=== PATIENT | female | born 1965 | race Caucasian/White ===

== ENCOUNTER 2016-10-16 07:47 | Day surgery (SDC) | payer MEDICAID, OTHER ==
[2016-10-15 08:24] VITALS: BMI 36.6
[~2016-10-16 07:47] MED LIST: LACTATED RINGERS 1,000 ML IV SCH
[2016-10-16 08:15] VITALS: RESP 16; TEMP 99.5
[2016-10-16] MEDS ORDERED: LIDOCAINE 1% 20 ML VIAL (10MG/ML) FOR IV START INTRADERMA ONE (08:19)
[2016-10-16] MEDS ORDERED: PROPOFOL 10 MG/ML 20 ML VIAL IV ONE (08:41)
[2016-10-16 09:18] VITALS: BP 127/88; PULSE 74
--- NOTE | 2016-10-16 09:21 | P.PCN ---
Date of Procedure: 10/16/16 Procedure(s) Performed: BRIEF HISTORY: Patient is a 51-year-old, pleasant, white female, scheduled for an upper endoscopy as a part of evaluation of GERD and intermittent dysphagia to solids for the last 2 years duration. Lately her symptoms have been progressively getting worse and she has episodes of dysphagia on a daily basis. She is hence scheduled for an upper endoscopy with possible dilation today. PROCEDURE PERFORMED: Esophagogastroduodenoscopy biopsy and dilation. PREOPERATIVE DIAGNOSIS: Progressive dysphagia to solids and GERD. IV sedation per anesthesia. PROCEDURE: After informed consent was obtained, the patient was brought into the endoscopy unit. IV conscious sedation was administered by Anesthesia under continuous monitoring. Initially the Olympus GIF-140 video endoscope was inserted into the mouth. Esophagus intubated without any difficulty. It was gradually advanced into the stomach and duodenum and carefully examined. The bulb and the second part of the duodenum appeared normal. The scope at this time was withdrawn to the stomach, adequately insufflated with air, and upon careful examination, mucosa of the antrum had mild gastritis and biopsies were done from this area. The body, cardia and the fundus appeared normal. The scope was then withdrawn into the esophagus. Small hiatal hernia noted. The GE junction was located at 39 cm from the incisors. There was a distal esophageal stricture identified which was patent and did not impede the passage of scope. But because of the patient's symptoms I proceeded with dilation using 15-18 mm TTS balloon for total of 2 minutes in a sequential fashion. There was some oozing identified at the end of dilation and hence no further dilation was done. The rest of theesophagus appeared normal. There were 2 superficial erosions noted in the distal esophagus consistent with LA grade A reflux esophagitis and the patient tolerated the procedure well. IMPRESSION: 1. Distal esophageal stricture status post balloon dilation using 15-18 mm TTS balloon as described above 2. Small hiatal hernia and LA grade a reflux esophagitis. 3. Mild antral gastritis. RECOMMENDATIONS: The findings of this examination were discussed with the patient as well as her family. She was advised to be on clear liquid diet today and advance to soft diet tomorrow. She will be started on Prilosec 20 mg daily and was briefly educated educated about antireflux measures. She'll be seen in the office in 3-4 months.
== END 2016-10-16 10:05 | disposition home or self-care (01) ==
LOC: ORWHC2ENDO 07:47
PROVIDERS: ATTEND Internal Medicine Gastroenterology
DX: K22.2 Esophageal obstruction (principal); R13.10 Dysphagia, unspecified; K44.9 Diaphragmatic hernia without obstruction or gangrene; I10 Essential (primary) hypertension; K29.50 Unspecified chronic gastritis without bleeding; K21.0 Gastro-esophageal reflux disease with esophagitis; F41.9 Anxiety disorder, unspecified; Z88.2 Allergy status to sulfonamides; Z88.8 Allergy status to other drugs, medicaments and biological substances; Z79.899 Other long term (current) drug therapy
CPT/HCPCS: 81025; 88305; 88342; 43239; 43249; J2704; C1726

== ENCOUNTER 2017-05-15 16:59 | Emergency (ER) | payer MEDICAID ==
[2017-05-15 17:11] VITALS: BP 222/112; PULSE 98; RESP 18; TEMP 98.4
[2017-05-15] MEDS ORDERED: PROPARACAINE 0.5% OPHTH DROPS 15 ML BTL RIGHT EYE STA (17:22)
[2017-05-15] MEDS ORDERED: DIPH,PERTUS(ACELL)TETVAC-LF 0.5 ML VIAL IM ONE (17:23)
--- NOTE | 2017-05-15 17:37 | ED ---
General Adult HPI - General Chief complaint: Eye Problems Stated complaint: burned eye with curler Time Seen by Provider: 05/15/17 17:15 Source: patient, RN notes reviewed Mode of arrival: ambulatory Limitations: no limitations - History of Present Illness Initial comments: Patient is a pleasant 51-year-old female presenting to the emergency department with burn to the right eye. Patient was curling her hair and accidentally curling iron slipped to her right eye. Patient states it was there for less than a second. Patient complains of pain of her right eye. Patient has blurry vision in her right eye. No other area of injury. Left eye unaffected. No history of injury to this eye previously. Unclear last tetanus immunization. - Related Data Home Medications Medication Instructions Recorded Confirmed ALPRAZolam [Xanax] 0.25 mg PO DAILY PRN 10/15/16 05/15/17 Losartan-Hctz 50-12.5 mg [Hyzaar 1 tab PO HS 10/15/16 05/15/17 50-12.5] Citalopram Hydrobromide [CeleXA] 20 mg PO HS 05/15/17 05/15/17 Previous Rx's Medication Instructions Recorded Neomycin/Polymyxin B/Dexametha 1 applic RIGHT EYE QID #3.5 gm 05/15/17 [Maxitrol Ophth Oint] Allergies Allergy/AdvReac Type Severity Reaction Status Date / Time cefixime [From Suprax] AdvReac Rash/Hives Verified 05/15/17 17:34 sulfamethoxazole AdvReac Rash/Hives Verified 05/15/17 17:34 [From Bactrim] trimethoprim [From Bactrim] AdvReac Rash/Hives Verified 05/15/17 17:34 Review of Systems ROS Statement: Those systems with pertinent positive or pertinent negative responses have been documented in the HPI. ROS Other: All systems not noted in ROS Statement are negative. Constitutional: Denies: fever Eyes: Reports: eye pain, vision change ENT: Denies: throat pain Respiratory: Denies: cough Cardiovascular: Denies: palpitations Endocrine: Denies: fatigue Gastrointestinal: Denies: abdominal pain Genitourinary: Denies: dysuria Musculoskeletal: Denies: back pain Skin: Denies: rash Neurological: Denies: weakness Past Medical History Past Medical History: Hypertension Additional Past Medical History / Comment(s): RECENT EPISODES OF BLACK STOOL, N/ V , ABD. PAIN AND BLOATING, ALSO FOOD GETTING STUCK ON OCCASSION History of Any Multi-Drug Resistant Organisms: None Reported Past Surgical History: Cholecystectomy Additional Past Surgical History / Comment(s): D&C Past Anesthesia/Blood Transfusion Reactions: No Reported Reaction Past Psychological History: Anxiety Smoking Status: Never smoker Past Alcohol Use History: Occasional Past Drug Use History: None Reported - Past Family History Father Family Medical History: Cancer General Exam Limitations: no limitations General appearance: alert Head exam: Present: atraumatic Eye exam: Present: PERRL, EOMI. Absent: nystagmus Pupils: Present: other (Corneal burn apparent over the majority of the right pupil, approximately 90%. In addition there is a small amount of uptake inferior and lateral to this. This is visible on gross exam and confirmed with fluoroscein. diana sign negative) ENT exam: Present: normal oropharynx Neck exam: Present: normal inspection Respiratory exam: Present: normal lung sounds bilaterally Cardiovascular Exam: Present: regular rate, normal rhythm Extremities exam: Present: normal inspection Neurological exam: Present: alert Psychiatric exam: Present: normal affect, normal mood Skin exam: Present: normal color Course Vital Signs 05/15/17 17:09 Temperature 98.4 F Pulse Rate 98 Respiratory 18 Rate Blood Pressure 222/112 O2 Sat by Pulse 98 Oximetry Medical Decision Making - Medical Decision Making Case was discussed in detail with Dr. Molina who commends [employer] and will follow-up Wednesday with patient. Patient was updated on extreme importance of following up with ophthalmology Wednesday. Disposition Clinical Impression: Corneal burn Disposition: HOME SELF-CARE Condition: Stable Instructions: Corneal Abrasion (ED) Additional Instructions: Please follow-up with Dr. Molina Wednesday. Number provided. Return for redness around the eye, change or worsening symptoms or other concerns. Prescriptions: Neomycin/Polymyxin B/Dexametha [Maxitrol Ophth Oint] 1 applic RIGHT EYE QID # 3.5 gm Referrals: Holli Krishnan MD [Primary Care Provider] - 1-2 days Jordin Molina MD [STAFF PHYSICIAN] - 1-2 days Time of Disposition: 17:45
== END 2017-05-15 18:05 | disposition home or self-care (01) ==
LOC: EC 16:59
DX: T26.11XA Burn of cornea and conjunctival sac, right eye, initial encounter (principal); T31.0 Burns involving less than 10% of body surface; I10 Essential (primary) hypertension; Z23 Encounter for immunization; Z88.1 Allergy status to other antibiotic agents; Z88.2 Allergy status to sulfonamides; Z79.899 Other long term (current) drug therapy; X15.8XXA Contact with other hot household appliances, initial encounter
CPT/HCPCS: 90471; 90715; 99283

== ENCOUNTER 2021-01-04 18:21 | Emergency (ER) | payer MEDICAID, OTHER ==
[2021-01-04 18:26] VITALS: RESP 18
--- NOTE | 2021-01-04 18:49 | ED ---
Lower Extremity Injury HPI - General Chief Complaint: Extremity Injury, Lower Stated Complaint: lt ankle injury Source: EMS Mode of arrival: EMS Limitations: no limitations - History of Present Illness Initial Comments: Jennifer is a 55yo female resents the emergency department today via ambulance for evaluation of left ankle left shoulder pain. She reports she was at the [employer] t heater she got up to walk there was a step that she did not see lighting on tripped and fell rolling her ankle and landing on her shoulder. He did not hit her head she did not lose consciousness. She has no history of injury to that ankle or surgery in the past. - Related Data Home Medications Medication Instructions Recorded Confirmed ALPRAZolam [Xanax] 0.25 mg PO DAILY PRN 10/15/16 05/15/17 Losartan-Hctz 50-12.5 mg [Hyzaar 1 tab PO HS 10/15/16 05/15/17 50-12.5] Citalopram Hydrobromide [CeleXA] 20 mg PO HS 05/15/17 05/15/17 Previous Rx's Medication Instructions Recorded Hydrocodone/Acetaminophen [[place] 2 each PO Q6HR PRN #16 tab 05/15/17 5-325] Neomycin/Polymyxin B/Dexametha 1 applic RIGHT EYE QID #3.5 gm 05/15/17 [Maxitrol Ophth Oint] Allergies Allergy/AdvReac Type Severity Reaction Status Date / Time cefixime [From Suprax] AdvReac Rash/Hives Verified 01/04/21 18:26 sulfamethoxazole AdvReac Rash/Hives Verified 01/04/21 18:26 [From Bactrim] trimethoprim [From Bactrim] AdvReac Rash/Hives Verified 01/04/21 18:26 Review of Systems ROS Statement: Those systems with pertinent positive or pertinent negative responses have been documented in the HPI. ROS Other: All systems not noted in ROS Statement are negative. Past Medical History Past Medical History: Hyperlipidemia, Hypertension Additional Past Medical History / Comment(s): RECENT EPISODES OF BLACK STOOL, N/V , ABD. PAIN AND BLOATING, ALSO FOOD GETTING STUCK ON OCCASSION History of Any Multi-Drug Resistant Organisms: None Reported Past Surgical History: Cholecystectomy Additional Past Surgical History / Comment(s): D&C Past Anesthesia/Blood Transfusion Reactions: No Reported Reaction Past Psychological History: Anxiety Smoking Status: Former smoker Past Alcohol Use History: Occasional Past Drug Use History: None Reported - Past Family History Father Family Medical History: Cancer General Exam - General Exam Comments Initial Comments: Physical Exam GENERAL: Patient is well-developed and well-nourished. Patient is nontoxic and well-hydrated and is in no distress. HENT: Normocephalic, Atraumatic. EYES: PERRL, EOMI PULMONARY: Unlabored respirations. CARDIOVASCULAR: RRR Warm and well perfused extremities ABDOMEN: Non-distended SKIN: No rashes or bruising : Deferred NEUROLOGIC: Alert and oriented Normal speech MUSCULOSKELETAL: Full range of motion of left shoulder Swelling the lateral left ankle over the lateral malleolus, no tenderness to palpation in the foot or proximal fibula PSYCHIATRIC: No SI/HI Limitations: no limitations Course Vital Signs 01/04/21 01/04/21 18:22 20:22 Temperature 98.5 F 98.9 F Pulse Rate 86 83 Respiratory 18 18 Rate Blood Pressure 153/99 129/91 O2 Sat by Pulse 97 100 Oximetry Medical Decision Making - Medical Decision Making Patient was seen and evaluated Sirs obtained from patient and EMS X-rays were obtained and revealed no acute bony injury Diagnosis of sprain was discussed with the patient, she was placed in a stirrup splint and provided with crutches Patient was advised to follow up outpatient with orthopedics Supportive care including rest, ice, compression and elevation were discussed patient was discharged home in stable condition Disposition Clinical Impression: Fall, Right ankle sprain Disposition: HOME SELF-CARE Condition: Stable Instructions (If sedation given, give patient instructions): Ankle Sprain (ED) Is patient prescribed a controlled substance at d/c from ED?: No Referrals: Bridgett Shipley MD [Primary Care Provider] - 1-2 days
--- NOTE | 2021-01-04 19:06 | XR ---
EXAMINATION TYPE: XR shoulder complete LT DATE OF EXAM: 01/04/2021 COMPARISON: NONE HISTORY: Pain. Fall. TECHNIQUE: 3 views FINDINGS: I see no fracture nor dislocation. Joint spaces are normal. There are no pathologic calcifi cations. IMPRESSION: Negative left shoulder exam.
--- NOTE | 2021-01-04 19:07 | XR ---
EXAMINATION TYPE: XR ankle complete LT DATE OF EXAM: 01/04/2021 COMPARISON: NONE HISTORY: Pain TECHNIQUE: 3 views FINDINGS: Ankle mortise is anatomic. I see no fracture nor dislocation. There is plantar calcaneal sp urring. Joint spaces are normal. IMPRESSION: No acute abnormality of the left ankle.
[2021-01-04] MEDS ORDERED: MORPHINE SULFATE 4 MG/ML SYRINGE IM STA (19:12)
[2021-01-04 20:24] VITALS: BP 129/91; PULSE 83; TEMP 98.9
== END 2021-01-04 20:25 | disposition home or self-care (01) ==
LOC: EC 18:21
DX: S93.401A Sprain of unspecified ligament of right ankle, initial encounter (principal); S99.912A Unspecified injury of left ankle, initial encounter; M25.512 Pain in left shoulder; E78.5 Hyperlipidemia, unspecified; I10 Essential (primary) hypertension; F41.9 Anxiety disorder, unspecified; Z87.891 Personal history of nicotine dependence; Z79.899 Other long term (current) drug therapy; W01.0XXA Fall on same level from slipping, tripping and stumbling without subsequent striking against object, initial encounter; Y92.26 Movie house or cinema as the place of occurrence of the external cause
CPT/HCPCS: 73030; 73610; 99284; 96372; 29505; L4350; J2270

== ENCOUNTER → 2021-02-19 | Outpatient (CLI) | payer OTHER ==
[2021-02-19 16:53] LABS: Basophils # (A) 0.06 X 10*3/uL (0.00-0.10); Basophils % (A) 0.8 %; Eosinophils # (A) 0.17 X 10*3/uL (0.04-0.35); Eosinophils % (A) 2.4 %; HCT 45.1 % (37.2-46.3); HGB 14.4 g/dL (12.0-15.0); Lymphocytes # (A) 1.84 X 10*3/uL (0.90-5.00); Lymphocytes % (A) 25.5 %; MCH 29.1 pg (27.0-32.0); MCHC 31.9 g/dL (32.0-37.0); MCV 91.1 fL (80.0-97.0); Monocytes # (A) 0.79 X 10*3/uL (0.20-1.00); Neutrophils # (A) 4.33 X 10*3/uL (1.80-7.70); Platelet Count 368 X 10*3/uL (140-440); RBC 4.95 X 10*6/uL (4.10-5.20); RDW 14.5 % (11.5-14.5); WBC 7.21 X 10*3/uL (4.50-10.00)
[2021-02-19 18:54] LABS: African American GFR (CKD) 96.9 (60.0-200.0); Albumin 4.4 g/dL (3.80-4.90); Albumin/Globulin Ratio 1.69 (1.60-3.17); Anion Gap 7.8 mmol/L (4.00-12.00); BUN/Creat Ratio 17.5 Ratio (12.00-20.00); Calcium 9.9 mg/dL (8.7-10.3); Carbon Dioxide 28.2 mmol/L (21.6-31.8); Chol/HDL Ratio 5.64; Globulin 2.6 g/dL (1.6-3.3); LDL Cholesterol,Calculated 162.6 mg/dL (0.0-131.0); Non-African American GFR(CKD) 83.6 (60.0-200.0); Potassium 4.1 mmol/L (3.5-5.5); Total Bilirubin 0.7 mg/dL (0.3-1.2); VLDL Calculation 41.4 mg/dL (5.00-40.00)
[2021-02-19 20:19] LABS: Hemoglobin A1C 5.4 % (4.0-6.0)
== END | disposition home or self-care (01) ==
LOC: LABWHC1 09:07
PROVIDERS: ATTEND Psychiatry & Neurology Psychiatry
DX: Z01.419 Encounter for gynecological examination (general) (routine) without abnormal findings (principal); R53.83 Other fatigue
CPT/HCPCS: 36415; 80053; 80061; 82306; 82607; 83036; 84439; 84443; 85025

== ENCOUNTER → 2021-04-08 | Outpatient (CLI) | payer OTHER ==
--- NOTE | 2021-04-15 09:30 | MM ---
Reason for exam: screening (asymptomatic). Last mammogram was performed 1 year and 11 months ago. History: Patient is postmenopausal. Family history of premenopausal breast cancer in mother. Benign excisional biopsy of the right breast. Took hormonal contraceptives for 5 years. Physical Findings: A clinical breast exam by your physician is recommended on an annual basis and results should be correlated with mammographic findings. MG 3D Screening Mammo W/Cad Bilateral CC and MLO view(s) were taken. Prior study comparison: May 22, 2019, mammogram, performed at [place]. May 08, 2019, mammogram, performed at [place]. November 21, 2015, bilateral MG 3d screening mammo w/cad. May 04, 2014, bilateral MG screening mammo w CAD. The breast tissue is heterogeneously dense. This may lower the sensitivity of mammography. Finding #1: There is a 5 mm equal density (isodense), obscured mass in the central position of the left breast. Finding #2: There are typically benign calcifications in both breasts. Previous mammotome biopsy in the right breast. ASSESSMENT: Incomplete: need additional imaging evaluation, BI-RAD 0 RECOMMENDATION: Special view mammogram of the left breast. If lesion persists on supplemental views, image directed ultrasound is recommended. [facility] will attempt to contact patient to return for supplemental views and ultrasound if indicated.
== END | disposition home or self-care (01) ==
LOC: RADMAMWWP 11:21
PROVIDERS: ATTEND Family Medicine
DX: Z12.39 Encounter for other screening for malignant neoplasm of breast (principal); Z80.3 Family history of malignant neoplasm of breast
CPT/HCPCS: 77063; 77067

== ENCOUNTER → 2021-04-16 | Outpatient (CLI) | payer OTHER ==
--- NOTE | 2021-04-16 10:09 | MM ---
Reason for exam: additional evaluation requested from abnormal screening. Last mammogram was performed less than 1 month ago. History: Patient is postmenopausal. Family history of premenopausal breast cancer in mother at age 50. Benign excisional biopsy of the right breast, 2019. Took hormonal contraceptives for 5 years. Physical Findings: Nurse did not find any significant physical abnormalities on exam. MG 3D Work Up W/Cad LT Spot compression CC and CCRL view(s) were taken of the left breast. Prior study comparison: April 08, 2021, bilateral MG 3d screening mammo w/cad. May 22, 2019, mammogram, performed at [place]. There is no discrete abnormality including area of concern. These results were verbally communicated with the patient and result sheet given to the patient on 04/16/21. ASSESSMENT: Probably benign, BI-RAD 3 RECOMMENDATION: Follow-up diagnostic mammogram of the left breast in 6 months.
== END | disposition home or self-care (01) ==
LOC: RADMAMWWP 08:20
PROVIDERS: ATTEND Family Medicine
DX: R92.8 Other abnormal and inconclusive findings on diagnostic imaging of breast (principal); Z80.3 Family history of malignant neoplasm of breast
CPT/HCPCS: 77061; 77065

== ENCOUNTER 2021-07-02 08:05 | Day surgery (SDC) | payer OTHER ==
[2021-06-27 15:31] VITALS: BMI 37.4
[~2021-07-02 08:05] MED LIST changes: +LIDOCAINE 1% (10MG/ML) FOR IV START INTRADERMA PRN
[2021-07-02] MEDS ORDERED: LACTATED RINGERS 1,000 ML IV ONE (08:39)
[2021-07-02 08:43] VITALS: RESP 18; TEMP 97.8
[2021-07-02] MEDS ORDERED: PROPOFOL 10 MG/ML 20 ML VIAL IV ONE (09:52)
[2021-07-02] MEDS ORDERED: LIDOCAINE 1% INJ 10MG/ML (20 ML MDV) ONE (09:52)
--- NOTE | 2021-07-02 10:12 | P.PCN ---
Date of Procedure: 07/02/21 Procedure(s) Performed: BRIEF HISTORY: Patient is a 56-year-old pleasant white female scheduled for an elective colonoscopy as a part of screening for colorectal neoplasia. PROCEDURE PERFORMED: Colonoscopy. PREOPERATIVE DIAGNOSIS: Screening for colon cancer. IV sedation per Anesthesia. PROCEDURE: After informed consent was obtained, the patient, was brought into the endoscopy unit. IV sedation was administered by Anesthesia under continuous monitoring. Digital rectal examination was normal. Initially the Olympus CF-160 flexible video colonoscope was then inserted in the rectum, gradually advanced into the cecum without any difficulty. Careful examination was performed as the scope was gradually being withdrawn. Ileocecal valve and the appendiceal orifice were visualized and appeared normal. Prep was excellent. Mucosa of the cecum, ascending colon, transverse colon, descending colon, sigmoid colon, and rectum appeared normal. Retroflexion was performed in the rectum and no lesions were seen. The patient tolerated the procedure well. IMPRESSION: Normal-appearing colon from rectum to cecum with no evidence of colorectal neoplasia. RECOMMENDATIONS: Findings of this examination were discussed with the patient as well as a family. She was advised to have a repeat screening colonoscopy in 10 years..
[2021-07-02 10:37] VITALS: BP 134/85; PULSE 90
== END 2021-07-02 10:52 | disposition home or self-care (01) ==
LOC: ORWHC2ENDO 08:05
PROVIDERS: ATTEND Internal Medicine Gastroenterology
DX: Z12.11 Encounter for screening for malignant neoplasm of colon (principal)
CPT/HCPCS: 45378; J2001; J2704

== ENCOUNTER → 2021-09-15 | Outpatient (CLI) | payer OTHER ==
--- NOTE | 2021-09-15 16:25 | XR ---
EXAMINATION TYPE: XR lumbar spine 2 or 3V, XR Hip Complete 2 views RT DATE OF EXAM: 09/15/2021 Comparison: None Clinical History: 56-year-old female pain. S39.012A, S76.011D. Lifting injury 2 weeks ago. Findings: LUMBAR SPINE: Advanced hypertrophic facet arthropathy mid to lower lumbar spine. Additional degenerative subarticul ar sclerosis right SI joint. Cholecystectomy clips. Grade 1 anterolisthesis of L4-L5. Trace grade 1 r etrolisthesis L1-L2, L2-L3, L3-L4. Mild multilevel degenerative disc disease. Vertebral body heights are preserved. RIGHT HIP: Mild marginal spurring at the right hip with relative preservation of hip joint space. No fracture or dislocation. IMPRESSION (lumbar spine and right hip): 1. Advanced hypertrophic facet arthropathy. Degenerative grade 1 spondylolisthesis from L1 through L5 levels. Mild multilevel degenerative disc disease. No vertebral compression collapse. 2. At least moderate right SI joint OA, asymmetric to the contralateral side. 3. Minimal early degenerative change of the right hip. No acute osseous abnormality seen.
== END | disposition home or self-care (01) ==
LOC: RADXRMAIN 15:31
PROVIDERS: ATTEND Emergency Medicine
DX: S39.012A Strain of muscle, fascia and tendon of lower back, initial encounter (principal); S76.011D Strain of muscle, fascia and tendon of right hip, subsequent encounter; M47.896 Other spondylosis, lumbar region; M51.36 Other intervertebral disc degeneration, lumbar region; X58.XXXA Exposure to other specified factors, initial encounter; X50.9XXD Other and unspecified overexertion or strenuous movements or postures, subsequent encounter
CPT/HCPCS: 72100; 73502

== ENCOUNTER → 2022-02-13 | Outpatient (CLI) | payer OTHER | END | disposition home or self-care (01) | LOC: RADMAMWWP 14:23 | PROVIDERS: ATTEND Family Medicine | DX: R92.8 Other abnormal and inconclusive findings on diagnostic imaging of breast (principal) | CPT/HCPCS: 77066 ==

== ENCOUNTER 2023-04-12 08:16 | Emergency (ER) | payer BC ==
[2023-04-12 08:26] VITALS: RESP 18
[2023-04-12] MEDS ORDERED: SODIUM CHLORIDE 0.9% 1,000 ML IV STA (08:33)
[2023-04-12] MEDS ORDERED: ONDANSETRON 4 MG/2 ML VIAL IVP STA (08:33)
--- NOTE | 2023-04-12 08:38 | ED ---
Recheck HPI - General Chief Complaint: Recheck/Abnormal Lab/Rx Stated Complaint: HTN Time Seen by Provider: 04/12/23 08:27 Source: patient, RN notes reviewed Mode of arrival: ambulatory Limitations: no limitations - History of Present Illness Initial Comments: This is a 57-year-old female who presents to the emergency department for nausea, cold sweats, and shaking. Patient was at work, when she suddenly started to experience these symptoms. She had a coworker take her blood pressure, and it was 160/101. She had some orange juice, and when it was rechecked it was in the 150s systolically. Reports a family history of strokes, and was concerned about the elevation in her blood pressure. She did take her blood pressure medication this morning. States that she does still feel somewhat nauseous and shaky. Denies any fevers, chills, sore throat, cough, dyspnea, chest pain, palpitations, abdominal pain, vomiting, diarrhea, back pain, or headaches. - Related Data Home Medications Medication Instructions Recorded Confirmed ALPRAZolam [Xanax] 0.25 mg PO DAILY PRN 10/15/16 04/12/23 Losartan-Hctz 50-12.5 mg [Hyzaar 1 tab PO HS 10/15/16 04/12/23 50-12.5] Atorvastatin [Lipitor] 20 mg PO HS 06/27/21 04/12/23 Cyclobenzaprine [Flexeril] 5 mg PO DAILY PRN 04/12/23 04/12/23 Magnesium 250 mg PO HS 04/12/23 04/12/23 Omeprazole [PriLOSEC] 20 mg PO DAILY PRN 04/12/23 04/12/23 buPROPion HCL [Wellbutrin XL] 150 mg PO HS 04/12/23 04/12/23 Allergies Allergy/AdvReac Type Severity Reaction Status Date / Time cefixime [From Suprax] AdvReac Rash/Hives Verified 04/12/23 10:56 sulfamethoxazole AdvReac Rash/Hives Verified 04/12/23 10:56 [From Bactrim] trimethoprim [From Bactrim] AdvReac Rash/Hives Verified 04/12/23 10:56 Review of Systems ROS Statement: Those systems with pertinent positive or pertinent negative responses have been documented in the HPI. ROS Other: All systems not noted in ROS Statement are negative. Past Medical History Past Medical History: Hyperlipidemia, Hypertension Additional Past Medical History / Comment(s): BLACK STOOL-last episode 2 weeks ago History of Any Multi-Drug Resistant Organisms: None Reported Past Surgical History: Cholecystectomy Additional Past Surgical History / Comment(s): D&C Past Anesthesia/Blood Transfusion Reactions: No Reported Reaction Past Psychological History: Anxiety Smoking Status: Former smoker Past Alcohol Use History: Occasional Past Drug Use History: None Reported - Past Family History Father Family Medical History: Cancer General Exam Limitations: no limitations General appearance: alert, in no apparent distress Head exam: Present: atraumatic, normocephalic, normal inspection Eye exam: Present: normal appearance, PERRL, EOMI. Absent: scleral icterus, conjunctival injection, periorbital swelling Respiratory exam: Present: normal lung sounds bilaterally. Absent: respiratory distress, wheezes, rales, rhonchi, stridor Cardiovascular Exam: Present: regular rate, normal rhythm, normal heart sounds. Absent: systolic murmur, diastolic murmur, rubs, gallop, clicks Neurological exam: Present: alert, oriented X3, CN II-XII intact Expanded Speech: Present: fluid speech Cerebellar function: Finger to Nose: Normal, Romberg: Normal Motor strength exam: RUE: 5, LUE: 5, RLE: 5, LLE: 5 Psychiatric exam: Present: normal affect, normal mood Skin exam: Present: warm, dry, intact, normal color. Absent: rash Course Vital Signs 04/12/23 04/12/23 04/12/23 08:20 09:03 09:30 Temperature 96.7 F L Pulse Rate 80 75 61 Respiratory 18 18 18 Rate Blood Pressure 142/100 140/92 140/92 O2 Sat by Pulse 97 97 96 Oximetry 04/12/23 04/12/23 10:00 10:30 Temperature Pulse Rate 58 L 61 Respiratory 18 18 Rate Blood Pressure 126/90 127/86 O2 Sat by Pulse 99 99 Oximetry Medical Decision Making - Medical Decision Making This is a 57-year-old female who presents to the emergency department for nausea, cold sweats, and shaking. Was pt. sent in by a medical professional or institution? @ -No Did you speak to anyone other than the patient for history? @ -No Did you review nursing and triage notes? @ -Yes, and I agree, it is accurate with regards to the patient's symptoms. Were old charts reviewed? @ -No Differential Diagnosis? @ -Differential Nausea and Vomiting: Gastroenteritis, cholecystitis, appendicitis, pancreatitis, migraine, benign positional vertigo, food borne illness, pyelonephritis, irritable bowel syndrome, influenza, Covid, GERD, incarcerated hernia, intestinal obstruction, this is not meant to be an all-inclusive list. EKG interpreted by me (3pts min.)? @ -EKG interpreted by me demonstrating the following: Sinus rhythm. Ventricular rate 72 beats per minute, HI interval 185 ms, QRS duration 89 ms, QTC 398 ms. X-rays interpreted by me (1pt min.)? @ -Chest x-ray obtained, my interpretation identifies no localized consolidations or infiltrates. CT interpreted by me (1pt min.)? @ -Not obtained U/S interpreted by me (1pt. min.)? @ -Not obtained What testing was considered but not performed? (CT, X-rays, U/S, labs)? Why? @ -None What meds were considered but not given? Why? @ -None Did you discuss the management of the patient with other professionals? @ -No Did you reconcile home meds? @ -No Was smoking cessation discussed for >3mins.? @ -No Was critical care preformed (if so, how long)? @ -No Were there social determinants of health that impacted care today? How? (Homelessness, low income, unemployed, alcoholism, drug addiction, transportation, low edu. Level, literacy, decrease access to med. care, group home, rehab)? @ -No Was there de-escalation of care discussed even if they declined? (Discuss DNR or withdrawal of care, Hospice)? @ -No What co-morbidities impacted this encounter? (DM, HTN, Smoking, COPD, CAD, Cancer, CVA, Hep., AIDS, mental health diagnosis, sleep apnea, morbid obesity)? @ -HTN, HLD Was patient admitted / discharged? @ -Discharged. Lab work obtained and found to be nonactionable. We did also obtain a second troponin, which was also negative. She was given a liter bolus of IV fluids and Zofran. She did start to feel significantly improved while in the emergency department. Blood pressure also improved significantly into the 120s systolically. She was discharged home in stable condition with instruction to follow-up with her PCP. Undiagnosed new problem with uncertain prognosis? @ -None Drug Therapy requiring intensive monitoring for toxicity (Heparin, Nitro, Insulin, Cardizem)? @ -None Were any procedures done? @ -None Diagnosis/symptom? @ -Nausea, tremors, elevated BP Acute, or Chronic, or Acute on Chronic? @ -Acute Uncomplicated (without systemic symptoms) or Complicated (systemic symptoms)? @ -Uncomplicated Side effects of treatment? @ -None Exacerbation, Progression, or Severe Exacerbation] @ -Not applicable Poses a threat to life or bodily function? @ -No Return precautions reviewed in depth, the patient is instructed to return to the emergency department with any new, worsening, or concerning symptoms. Patient ve rbalized understanding. This case was discussed in detail with the attending ED physician, Dr. Kang. Presentation, findings, and treatment plan discussed in detail as well. - Lab Data Result diagrams: 04/12/23 08:45 04/12/23 08:45 Lab Results 04/12/23 04/12/23 04/12/23 Range/Units 08:45 08:45 08:45 WBC 6.9 (3.8-10.6) k/uL RBC 5.02 (3.80-5.40) m/uL Hgb 14.5 (11.4-16.0) gm/dL Hct 43.4 (34.0-46.0) % MCV 86.5 (80.0-100.0) fL MCH 28.9 (25.0-35.0) pg MCHC 33.4 (31.0-37.0) g/dL RDW 13.9 (11.5-15.5) % Plt Count 275 (150-450) k/uL MPV 7.4 Neutrophils % 60 % Lymphocytes % 24 % Monocytes % 10 % Eosinophils % 3 % Basophils % 1 % Neutrophils # 4.2 (1.3-7.7) k/uL Lymphocytes # 1.7 (1.0-4.8) k/uL Monocytes # 0.7 (0-1.0) k/uL Eosinophils # 0.2 (0-0.7) k/uL Basophils # 0.0 (0-0.2) k/uL PT 10.0 (9.0-12.0) sec INR 0.9 (<1.2) APTT 23.7 (22.0-30.0) sec Sodium 138 (137-145) mmol/L Potassium 4.3 (3.5-5.1) mmol/L Chloride 101 (98-107) mmol/L Carbon Dioxide 31 H (22-30) mmol/L Anion Gap 6 mmol/L BUN 20 H (7-17) mg/dL Creatinine 0.71 (0.52-1.04) mg/dL Est GFR (CKD-EPI)AfAm >90 (>60 ml/min/1.73 sqM) Est GFR (CKD-EPI)NonAf >90 (>60 ml/min/1.73 sqM) Glucose 93 (74-99) mg/dL Calcium 10.7 H (8.4-10.2) mg/dL Magnesium 2.2 (1.6-2.3) mg/dL Total Bilirubin 0.6 (0.2-1.3) mg/dL AST 31 (14-36) U/L ALT 30 (4-34) U/L Alkaline Phosphatase 74 (38-126) U/L Troponin I (0.000-0.034) ng/mL Total Protein 7.5 (6.3-8.2) g/dL Albumin 4.3 (3.5-5.0) g/dL TSH 1.820 (0.465-4.680) mIU/L 04/12/23 04/12/23 Range/Units 08:45 13:00 WBC (3.8-10.6) k/uL RBC (3.80-5.40) m/uL Hgb (11.4-16.0) gm/dL Hct (34.0-46.0) % MCV (80.0-100.0) fL MCH (25.0-35.0) pg MCHC (31.0-37.0) g/dL RDW (11.5-15.5) % Plt Count (150-450) k/uL MPV Neutrophils % % Lymphocytes % % Monocytes % % Eosinophils % % Basophils % % Neutrophils # (1.3-7.7) k/uL Lymphocytes # (1.0-4.8) k/uL Monocytes # (0-1.0) k/uL Eosinophils # (0-0.7) k/uL Basophils # (0-0.2) k/uL PT (9.0-12.0) sec INR (<1.2) APTT (22.0-30.0) sec Sodium (137-145) mmol/L Potassium (3.5-5.1) mmol/L Chloride (98-107) mmol/L Carbon Dioxide (22-30) mmol/L Anion Gap mmol/L BUN (7-17) mg/dL Creatinine (0.52-1.04) mg/dL Est GFR (CKD-EPI)AfAm (>60 ml/min/1.73 sqM) Est GFR (CKD-EPI)NonAf (>60 ml/min/1.73 sqM) Glucose (74-99) mg/dL Calcium (8.4-10.2) mg/dL Magnesium (1.6-2.3) mg/dL Total Bilirubin (0.2-1.3) mg/dL AST (14-36) U/L ALT (4-34) U/L Alkaline Phosphatase (38-126) U/L Troponin I <0.012 <0.012 (0.000-0.034) ng/mL Total Protein (6.3-8.2) g/dL Albumin (3.5-5.0) g/dL TSH (0.465-4.680) mIU/L - Radiology Data Radiology results: report reviewed, image reviewed Disposition Clinical Impression: Nausea, Hypertension Disposition: HOME SELF-CARE Instructions (If sedation given, give patient instructions): Hypertension (ED) Additional Instructions: Return to the emergency department with any new, worsening, or concerning symptoms. 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 Is patient prescribed a controlled substance at d/c from ED?: No Referrals: Bridgett Shipley MD [STAFF PHYSICIAN] - 1-2 days
--- NOTE | 2023-04-12 09:04 | XR ---
EXAMINATION TYPE: XR chest 2V DATE OF EXAM: 04/12/2023 COMPARISON: None INDICATION: Chest pain and abnormal labs disease TECHNIQUE: Frontal and lateral views of the chest are obtained. FINDINGS: The heart size is normal. The pulmonary vasculature is normal. The lungs are clear. IMPRESSION: 1. No acute pulmonary process.
[2023-04-12 09:09] LABS: Basophils % (A) 1 %; Eosinophils # (A) 0.2 k/uL (0-0.7); Eosinophils % (A) 3 %; HCT 43.4 % (34.0-46.0); HGB 14.5 gm/dL (11.4-16.0); Lymphocytes # (A) 1.7 k/uL (1.0-4.8); Lymphocytes % (A) 24 %; MCH 28.9 pg (25.0-35.0); MCHC 33.4 g/dL (31.0-37.0); MCV 86.5 fL (80.0-100.0); Mean Platelet Volume 7.4; Monocytes # (A) 0.7 k/uL (0-1.0); Monocytes % (A) 10 %; Neutrophils # (A) 4.2 k/uL (1.3-7.7); Neutrophils % (A) 60 %; Platelet Count 275 k/uL (150-450); RBC 5.02 m/uL (3.80-5.40); RDW 13.9 % (11.5-15.5); WBC 6.9 k/uL (3.8-10.6)
[2023-04-12 09:22] LABS: INR 0.9 (<1.2); Partial Thromboplastin Time 23.7 sec (22.0-30.0)
[2023-04-12 09:23] LABS: ALT 30 U/L (4-34); AST 31 U/L (14-36); African American GFR (CKD) >90 (>60 ml/min/1.73 sqM); Albumin 4.3 g/dL (3.5-5.0); Alkaline Phosphatase 74 U/L (38-126); Blood Urea Nitrogen 20 mg/dL (7-17); Calcium 10.7 mg/dL (8.4-10.2); Carbon Dioxide 31 mmol/L (22-30); Glucose 93 mg/dL (74-99); Magnesium 2.2 mg/dL (1.6-2.3); Non-African American GFR(CKD) >90 (>60 ml/min/1.73 sqM); Total Bilirubin 0.6 mg/dL (0.2-1.3); Total Protein 7.5 g/dL (6.3-8.2)
[2023-04-12 09:54] LABS: Anion Gap 6 mmol/L; Chloride 101 mmol/L (98-107); Potassium 4.3 mmol/L (3.5-5.1); Sodium 138 mmol/L (137-145)
[2023-04-12] MEDS ORDERED: ONDANSETRON 4 MG ODT STARTER PACK 2 TAB BTL PO STA (14:11)
[2023-04-12 14:43] VITALS: BP 119/74; PULSE 69; TEMP 98.4
== END 2023-04-12 14:47 | disposition home or self-care (01) ==
LOC: EC 08:16
DX: I10 Essential (primary) hypertension (principal); R11.0 Nausea; E78.5 Hyperlipidemia, unspecified; F41.9 Anxiety disorder, unspecified; Z87.891 Personal history of nicotine dependence; Z88.2 Allergy status to sulfonamides; Z88.1 Allergy status to other antibiotic agents; Z79.899 Other long term (current) drug therapy
CPT/HCPCS: 36415; 93005; 80053; 84443; 83735; 84484; 85025; 85610; 85730; 71046; 99284; 96374; 96361; J2405

== ENCOUNTER → 2023-09-15 | Outpatient (CLI) | payer BC ==
--- NOTE | 2023-09-16 09:02 | MM ---
Reason for Exam: Screening (asymptomatic). Last mammogram was performed 2 year(s) and 5 month(s) ago. Patient History: Menarche at age 14. First Full-Term at age 28. Postmenopausal. Patient used Hormonal Contraceptives for 5 years. 2019, Benign Excisional Biopsy on the right side. Mother had breast cancer, age 50. Risk Values: Ara 5 year model risk: 3.0%. NCI Lifetime model risk: 17.3%. Prior Study Comparison: 04/08/2021 Bilateral Screening Mammogram, [facility]. 04/16/2021 Left Diagnostic Mammogram, [facility]. 02/13/2022 Bilateral MG diagnostic mammo w CAD [facility], [facility]. Tissue Density: There are scattered fibroglandular densities. Findings: Analyzed By CAD. Right breast biopsy clip. There is no suspicious group of microcalcifications or new suspicious mass. Overall Assessment: Negative, BI-RAD 1 Management: Screening Mammogram of both breasts in [address] [facility] will attempt to contact patient to return for supplemental views and ultrasound if indicated. Patient should continue monthly self-breast exams. A clinical breast exam by your physician is recommended on an annual basis. This exam should not preclude additional follow-up of suspicious palpable abnormalities. Note on Ara scores and lifetime risk: 1. A Ara score greater than 3% is considered moderate risk. If this is the case, consider specialist referral to assess eligibility for a risk reducing agent. 2. If overall lifetime risk for the development of breast cancer is 20% or higher, the patient may qualify for future screening with alternating mammogram and breast MRI. Electronically signed and approved by: Pavel Mooney DO
== END | disposition home or self-care (01) ==
LOC: RADMAMWWP 15:36
PROVIDERS: ATTEND Family Medicine
DX: Z12.31 Encounter for screening mammogram for malignant neoplasm of breast (principal); Z80.3 Family history of malignant neoplasm of breast; Z78.0 Asymptomatic menopausal state
CPT/HCPCS: 77063; 77067

== ENCOUNTER 2024-12-05 02:25 | Emergency (ER) | payer BC ==
[2024-12-05 02:29] VITALS: TEMP 97.4
[2024-12-05] MEDS: ONDANSETRON ODT 8 MG TAB.RAPDIS PO STA (02:53)
[2024-12-05] MEDS: KETOROLAC 15 MG/ML 1 ML VIAL IVP STA ×2 (02:54→05:39)
[2024-12-05] MEDS: SODIUM CHLORIDE 0.9% 1,000 ML IV SCH (02:55)
[2024-12-05] MEDS: HYDROmorphone 1 MG/ML 1 ML SYRINGE IVP STA (02:55)
[2024-12-05 02:58] LABS: Basophils # (A) 0.08 10*3/uL (0.00-0.10); Eosinophils # (A) 0.33 10*3/uL (0.04-0.35); Eosinophils % (A) 4.3 %; HGB 14.9 g/dL (12.0-15.0); Lymphocytes # (A) 2.37 10*3/uL (0.90-5.00); Lymphocytes % (A) 30.6 %; MCH 28.8 pg (27.0-32.0); MCHC 32.4 g/dL (32.0-37.0); MCV 88.8 fL (80.0-97.0); Mean Platelet Volume 9.9 fL (9.5-12.2); Monocytes # (A) 0.88 10*3/uL (0.20-1.00); Monocytes % (A) 11.4 %; Neutrophils # (A) 4.07 10*3/uL (1.80-7.70); Neutrophils % (A) 52.4 %; Platelet Count 298 10*3/uL (140-440); RBC 5.18 10*6/uL (4.10-5.20); RDW 13.5 % (11.5-14.5); WBC 7.75 10*3/uL (4.50-10.00)
--- NOTE | 2024-12-05 03:07 | ED ---
Abdominal Pain HPI - General Chief Complaint: Back Pain/Injury Stated Complaint: Left flank pain Time Seen by Provider: 12/05/24 02:37 Source: patient, RN notes reviewed, old records reviewed Mode of arrival: ambulatory - History of Present Illness Initial Comments: This is a 59-year-old female to the ER for evaluation of severe abdominal pain flank pain back pain left flank pain left abdominal pain severe with nausea vomiting 3 to 4 days now spreading around to her lower back into her groin, left flank with no trauma no fevers no dysuria no diarrhea no difficulty with bowel movements no other complaints no history of surgery MD Complaint: abdominal pain -: days(s) (3) Location: LLQ, L flank Migration to: LLQ, L flank Severity: severe Severity scale (1-10): 8 Quality: stabbing Consistency: constant Improves With: nothing Worsens With: nothing Associated Symptoms: nausea, vomiting Treatments Prior to Arrival: other (0) - Related Data Home Medications Medication Instructions Recorded Confirmed ALPRAZolam [Xanax] 0.25 mg PO DAILY PRN 10/15/16 04/16/23 Losartan-Hctz 50-12.5 mg [Hyzaar 1 tab PO HS 10/15/16 04/16/23 50-12.5] Atorvastatin [Lipitor] 20 mg PO HS 06/27/21 04/16/23 Cyclobenzaprine [Flexeril] 5 mg PO HS PRN 04/12/23 04/16/23 Omeprazole [PriLOSEC] 20 mg PO DAILY 04/12/23 04/16/23 buPROPion HCL [Wellbutrin XL] 150 mg PO HS 04/12/23 04/16/23 Previous Rx's Medication Instructions Recorded Aspirin 81 mg PO DAILY 30 Days #30 tab 04/17/23 Metoprolol Succinate (ER) [Toprol 25 mg PO DAILY 30 Days #30 tab 04/17/23 XL] Ketorolac [Toradol] 10 mg PO Q6HR #20 tab 12/05/24 Allergies Allergy/AdvReac Type Severity Reaction Status Date / Time cefixime [From Suprax] AdvReac Rash/Hives Verified 12/05/24 02:29 sulfamethoxazole AdvReac Rash/Hives Verified 12/05/24 02:29 [From Bactrim] on face trimethoprim [From Bactrim] AdvReac Rash/Hives Verified 12/05/24 02:29 on face Review of Systems ROS Statement: Those systems with pertinent positive or pertinent negative responses have been documented in the HPI. ROS Other: All systems not noted in ROS Statement are negative. Past Medical History Past Medical History: Hyperlipidemia, Hypertension Additional Past Medical History / Comment(s): BLACK STOOL-last episode 2 weeks ago History of Any Multi-Drug Resistant Organisms: None Reported Past Surgical History: Cholecystectomy Additional Past Surgical History / Comment(s): D&C Past Anesthesia/Blood Transfusion Reactions: No Reported Reaction Additional Past Anesthesia/Blood Transfusion Reaction / Comment(s): has not recieved blood Past Psychological History: Anxiety Smoking Status: Former smoker Past Alcohol Use History: Occasional Past Drug Use History: None Reported - Past Family History Father Family Medical History: Cancer General Exam General appearance: alert, in no apparent distress Head exam: Present: atraumatic, normocephalic, normal inspection Eye exam: Present: normal appearance, PERRL, EOMI. Absent: scleral icterus, conjunctival injection, periorbital swelling ENT exam: Present: normal exam, mucous membranes moist Neck exam: Present: normal inspection. Absent: tenderness, meningismus, lymphadenopathy Respiratory exam: Present: normal lung sounds bilaterally. Absent: respiratory distress, wheezes, rales, rhonchi, stridor Cardiovascular Exam: Present: regular rate, normal rhythm, normal heart sounds. Absent: systolic murmur, diastolic murmur, rubs, gallop, clicks GI/Abdominal exam: Present: soft, normal bowel sounds. Absent: distended, tenderness, guarding, rebound, rigid Extremities exam: Present: normal inspection, full ROM, normal capillary refill. Absent: tenderness, pedal edema, joint swelling, calf tenderness Back exam: Present: normal inspection Neurological exam: Present: alert, oriented X3, CN II-XII intact Psychiatric exam: Present: normal affect, normal mood Skin exam: Present: warm, dry, intact, normal color. Absent: rash Course Vital Signs 12/05/24 12/05/24 12/05/24 02:27 05:01 05:45 Temperature 97.4 F L Pulse Rate 69 68 61 Respiratory 18 16 18 Rate Blood Pressure 147/100 132/63 144/86 O2 Sat by Pulse 99 98 100 Oximetry - Reevaluation(s) Reevaluation #1: 12/05/24 05:46 Medical records reviewed Reevaluation #2: 12/05/24 05:46 Patient symptoms improved Reevaluation #3: 12/05/24 05:46 Patient informed of results questions answered Reevaluation #4: Was pt. sent in by a medical professional or institution (GEORGE Dawson, DENTAL APPLIANCE REPAIRER, urgent care, hospital, or prison...) When possible be specific @ -no Did you speak to anyone other than the patient for history (EMS, parent, family, police, friend...)? What history was obtained from this source @ -no Did you review nursing and triage notes (agree or disagree)? Why? @ -agree Are old charts reviewed (outside hosp., previous admission, EMS record, old EKG, old radiological studies, urgent care reports/EKG's, prison records)? Report findings @ -yes Differential Diagnosis (chest pain, altered mental status, abdominal pain women, abdominal pain men, vaginal bleeding, weakness, fever, dyspnea, syncope, headache, dizziness, GI bleed, back pain, seizure, CVA, palpatations, mental health, musculoskeletal)? @ -prior EKG interpreted by me (3pts min.). @ -no X-rays interpreted by me (1pt min.). @ -no CT interpreted by me (1pt min.). @ -yes negative for acute disease U/S interpreted by me (1pt. min.). @ -no What testing was considered but not performed or refused? (CT, X-rays, U/S, labs)? Why? @ -none What meds were considered but not given or refused? Why? @ -none Did you discuss the management of the patient with other professionals ( professionals i.e. , GEORGE, DENTAL APPLIANCE REPAIRER, lab, RT, psych nurse, professor of social work, agronomy location manager, teacher, catapult and arresting gear officer, bilingual patient support caseworker)? Give summary @ -no Was smoking cessation discussed for >3mins.? @ -no Was critical care preformed (if so, how long)? @ -no Were there social determinants of health that impacted care today? How? (Homelessness, low income, unemployed, alcoholism, drug addiction, transportation, low edu. Level, literacy, decrease access to med. care, detention, rehab)? @ -none Was there de-escalation of care discussed even if they declined (Discuss DNR or withdrawal of care, Hospice)? DNR status @ -no What co-morbidities impacted this encounter? (DM, HTN, Smoking, COPD, CAD, Cancer, CVA, ARF, Chemo, Hep., AIDS, mental health diagnosis, sleep apnea, morbid obesity)? @ -none Was patient admitted / discharged? Hospital course, mention meds given and route, prescriptions, significant lab abnormalities, going to OR and other pertinent info. @ - 59 female to the ER abdominal pain severe left flank pain rating to groin. Symptoms of kidney stone no findings on CT scan patient can be discharged home Discharge Undiagnosed new problem with uncertain prognosis? @ -no Drug Therapy requiring intensive monitoring for toxicity (Heparin, Nitro, Insulin, Cardizem)? @ -no Were any procedures done? @ -no Diagnosis/symptom? @ -Flank pain abdominal pain Acute, or Chronic, or Acute on Chronic? @ -Acute Uncomplicated (without systemic symptoms) or Complicated (systemic symptoms)? @ -Complicated Side effects of treatment? @ -no Exacerbation, Progression, or Severe Exacerbation? @ -exacerbation Poses a threat to life or bodily function? How? (Chest pain, [place], [place], pneumonia, PE, COPD, DKA, ARF, appy, cholecystitis, CVA, Diverticulitis, Homicidal, Suicidal, threat to staff... and all critical care pts) @ -no Reevaluation #5: Differential Abdominal Pain Women: Appendicitis, Cholecystitis, diverticulosis, ischemic bowel, pancreatitis, hepatitis, UTI, gastroenteritis, AAA, incarcerated hernia, bowel obstruction, constipation, inflammatory bowel, hepatitis, peptic ulcer disease, splenic infarction, perforated viscus, vulvitis, ovarian torsion, PID, kidney stone, placenta abruption, this is not meant to be an all-inclusive list Medical Decision Making - Medical Decision Making 59 female to the ER abdominal pain severe left flank pain rating to groin. Symptoms of kidney stone no findings on CT scan patient can be discharged home - Lab Data Result diagrams: 12/05/24 02:53 12/05/24 02:53 Lab Results 12/05/24 12/05/24 12/05/24 Range/Units 02:53 02:53 02:53 WBC 7.75 (4.50-10.00) 10*3/uL RBC 5.18 (4.10-5.20) 10*6/uL Hgb 14.9 (12.0-15.0) g/dL Hct 46.0 (37.2-46.3) % MCV 88.8 (80.0-97.0) fL MCH 28.8 (27.0-32.0) pg MCHC 32.4 (32.0-37.0) g/dL Plt Count 298 (140-440) 10*3/uL MPV 9.9 (9.5-12.2) fL Immature Gran % (Auto) 0.3 % Neutrophils % 52.4 % Lymphocytes % 30.6 % Monocytes % 11.4 % Eosinophils % 4.3 % Basophils % 1.0 % Immature Gran # 0.02 (0.00-0.04) 10*3/uL Neutrophils # 4.07 (1.80-7.70) 10*3/uL Lymphocytes # 2.37 (0.90-5.00) 10*3/uL Monocytes # 0.88 (0.20-1.00) 10*3/uL Eosinophils # 0.33 (0.04-0.35) 10*3/uL Basophils # 0.08 (0.00-0.10) 10*3/uL PT (10.0-12.5) sec INR (<1.2) APTT (22.0-30.0) sec Sodium 137 (137-145) mmol/L Potassium 4.9 (3.5-5.1) mmol/L Chloride 105 (98-107) mmol/L Carbon Dioxide 25 (22-30) mmol/L Anion Gap 7 mmol/L BUN 20 H (7-17) mg/dL Creatinine 0.69 (0.52-1.04) mg/dL Est GFR (CKD-EPI)AfAm >90 (>60 ml/min/1.73 sqM) Est GFR (CKD-EPI)NonAf >90 (>60 ml/min/1.73 sqM) Glucose 99 (74-99) mg/dL Plasma Lactic Acid Jorge L 1.3 (0.7-2.0) mmol/L Calcium 10.8 H (8.4-10.2) mg/dL Total Bilirubin 0.9 (0.2-1.3) mg/dL AST 44 H (14-36) U/L ALT 32 (4-34) U/L Alkaline Phosphatase 61 (38-126) U/L Total Protein 7.4 (6.3-8.2) g/dL Albumin 4.3 (3.5-5.0) g/dL Amylase 43 (30-110) U/L Lipase 77 (23-300) U/L Urine Color Urine Appearance (Clear) Urine pH (5.0-8.0) Ur Specific [place] (1.001-1.035) Urine Protein (Negative) Urine Glucose (UA) (Negative) Urine Ketones (Negative) Urine Blood (Negative) Urine Nitrite (Negative) Urine Bilirubin (Negative) Urine Urobilinogen (<2.0) mg/dL Ur Leukocyte Esterase (Negative) 12/05/24 12/05/24 Range/Units 02:57 03:29 WBC (4.50-10.00) 10*3/uL RBC (4.10-5.20) 10*6/uL Hgb (12.0-15.0) g/dL Hct (37.2-46.3) % MCV (80.0-97.0) fL MCH (27.0-32.0) pg MCHC (32.0-37.0) g/dL Plt Count (140-440) 10*3/uL MPV (9.5-12.2) fL Immature Gran % (Auto) % Neutrophils % % Lymphocytes % % Monocytes % % Eosinophils % % Basophils % % Immature Gran # (0.00-0.04) 10*3/uL Neutrophils # (1.80-7.70) 10*3/uL Lymphocytes # (0.90-5.00) 10*3/uL Monocytes # (0.20-1.00) 10*3/uL Eosinophils # (0.04-0.35) 10*3/uL Basophils # (0.00-0.10) 10*3/uL PT 10.6 (10.0-12.5) sec INR 1.0 (<1.2) APTT 23.4 (22.0-30.0) sec Sodium (137-145) mmol/L Potassium (3.5-5.1) mmol/L Chloride (98-107) mmol/L Carbon Dioxide (22-30) mmol/L Anion Gap mmol/L BUN (7-17) mg/dL Creatinine (0.52-1.04) mg/dL Est GFR (CKD-EPI)AfAm (>60 ml/min/1.73 sqM) Est GFR (CKD-EPI)NonAf (>60 ml/min/1.73 sqM) Glucose (74-99) mg/dL Plasma Lactic Acid Jorge L (0.7-2.0) mmol/L Calcium (8.4-10.2) mg/dL Total Bilirubin (0.2-1.3) mg/dL AST (14-36) U/L ALT (4-34) U/L Alkaline Phosphatase (38-126) U/L Total Protein (6.3-8.2) g/dL Albumin (3.5-5.0) g/dL Amylase (30-110) U/L Lipase (23-300) U/L Urine Color Yellow Urine Appearance Clear (Clear) Urine pH 5.0 (5.0-8.0) Ur Specific [place] 1.024 (1.001-1.035) Urine Protein Negative (Negative) Urine Glucose (UA) Negative (Negative) Urine Ketones Negative (Negative) Urine Blood Negative (Negative) Urine Nitrite Negative (Negative) Urine Bilirubin Negative (Negative) Urine Urobilinogen <2.0 (<2.0) mg/dL Ur Leukocyte Esterase Negative (Negative) - Radiology Data Radiology results: report reviewed (CT on pelvis negative for acute disease), image reviewed Disposition Clinical Impression: Left flank pain, Back pain Disposition: HOME SELF-CARE Condition: Fair Instructions (If sedation given, give patient instructions): Acute Low Back Pain (ED), Flank Pain (ED) Prescriptions: Ketorolac [Toradol] 10 mg PO Q6HR #20 tab Is patient prescribed a controlled substance at d/c from ED?: No Referrals: Jackie Funes MD [Primary Care Provider] - 1-2 days Time of Disposition: 05:20
[2024-12-05 03:10] LABS: ALT 32 U/L (4-34); African American GFR (CKD) >90 (>60 ml/min/1.73 sqM); Albumin 4.3 g/dL (3.5-5.0); Amylase 43 U/L (30-110); Anion Gap 7 mmol/L; Blood Urea Nitrogen 20 mg/dL (7-17); Calcium 10.8 mg/dL (8.4-10.2); Carbon Dioxide 25 mmol/L (22-30); Chloride 105 mmol/L (98-107); Glucose 99 mg/dL (74-99); Lipase 77 U/L (23-300); Non-African American GFR(CKD) >90 (>60 ml/min/1.73 sqM); Sodium 137 mmol/L (137-145); Total Bilirubin 0.9 mg/dL (0.2-1.3); Total Protein 7.4 g/dL (6.3-8.2)
[2024-12-05 03:12] LABS: AST 44 U/L (14-36); Alkaline Phosphatase 61 U/L (38-126); Potassium 4.9 mmol/L (3.5-5.1)
[2024-12-05 03:24] LABS: Partial Thromboplastin Time 23.4 sec (22.0-30.0); Prothrombin Time 10.6 sec (10.0-12.5)
[2024-12-05 03:54] LABS: Appearance,Urine Clear (Clear); Bilirubin,Urine Negative (Negative); Blood,Urine Negative (Negative); Color,Urine Yellow; Glucose,Urine (UA) Negative (Negative); Ketones,Urine Negative (Negative); Leukocyte Esterase,Urine Negative (Negative); Nitrite,Urine Negative (Negative); Protein,Urine Negative (Negative); Specific Gravity,Urine 1.024 (1.001-1.035); Urobilinogen,Urine <2.0 mg/dL (<2.0)
--- NOTE | 2024-12-05 04:52 | CT ---
EXAM: CT Abdomen and Pelvis Without Intravenous Contrast CLINICAL HISTORY: ITS.REASON CT Reason: abdominal pain TECHNIQUE: Axial computed tomography images of the abdomen and pelvis without intravenous contrast. CTDI is 16.9 mGy and DLP is 923.1 mGy-cm. This CT exam was performed using one or more of the following dose reduction techniques: automated exposure control, adjustment of the mA and/or kV according to patient size, and/or use of iterative reconstruction technique. COMPARISON: No relevant prior studies available. FINDINGS: Limitations: Limited evaluation in the absence of contrast. Lung bases: Unremarkable. No mass. No consolidation. ABDOMEN: Liver: Unremarkable. Gallbladder and bile ducts: Cholecystectomy changes. No ductal dilation. Pancreas: Unremarkable. No ductal dilation. Spleen: Unremarkable. No splenomegaly. Adrenals: Unremarkable. No mass. Kidneys and ureters: No evidence of radiopaque renal calculi or signs of collecting system dilatation. Stomach and bowel: No evidence of bowel obstruction. No mucosal thickening. PELVIS: Appendix: Normal appendix. Bladder: Unremarkable. No stones. Reproductive: Unremarkable as visualized. ABDOMEN and PELVIS: Intraperitoneal space: Unremarkable. No free air. No significant fluid collection. Bones/joints: Degenerative changes in the spine. No acute fracture. No dislocation. Soft tissues: Umbilical hernia containing fat. Vasculature: Atherosclerotic disease. No abdominal aortic aneurysm. Lymph nodes: Unremarkable. No enlarged lymph nodes. IMPRESSION: 1. No evidence of radiopaque renal calculi or signs of collecting system dilatation. 2. Normal appendix. 3. No evidence of bowel obstruction. 4. No other acute findings. 5. Incidental findings as described.
[2024-12-05] MEDS ORDERED: HYDROmorphone 0.5 MG/0.5 ML SYRINGE IVP STA (05:29)
[2024-12-05] MEDS: ACET/COD 300 MG/30 MG STARTER PACK 6 TAB BTL PO STA (05:40)
[2024-12-05] MEDS: ONDANSETRON 4 MG ODT STARTER PACK 2 TAB BTL PO STA (05:40)
[2024-12-05 05:47] VITALS: BP 144/86; PULSE 61; RESP 18
== END 2024-12-05 05:53 | disposition home or self-care (01) ==
LOC: EC 02:25
DX: M54.9 Dorsalgia, unspecified (principal); R10.30 Lower abdominal pain, unspecified; Z87.891 Personal history of nicotine dependence; Z88.2 Allergy status to sulfonamides; Z88.1 Allergy status to other antibiotic agents
CPT/HCPCS: 36415; 80053; 82150; 83605; 83690; 85025; 85610; 85730; 81003; 74176; 99284; 96374; 96376; 96361 ×2; J1885; S0119

== ENCOUNTER → 2025-03-15 | Outpatient (CLI) | payer BC ==
--- NOTE | 2025-03-15 15:18 | MM ---
Reason for Exam: Screening (asymptomatic). Last mammogram was performed 1 year(s) and 6 month(s) ago. Patient History: Menarche at age 14. First Full-Term at age 28. Postmenopausal. Patient used Hormonal Contraceptives for 5 years. 2019, Benign Excisional Biopsy on the right side. Mother had breast cancer, age 50. Risk Values: Ara 5 year model risk: 3.1%. NCI Lifetime model risk: 17.0%. Prior Study Comparison: 04/16/2021 Left Diagnostic Mammogram, [facility]. 02/13/2022 Bilateral MG diagnostic mammo w CAD [facility], [facility]. 09/15/2023 Bilateral MG 3D screening mammo w/cad, [facility]. Tissue Density: There are scattered areas of fibroglandular density. Findings: Analyzed By CAD. Right breast biopsy clip. Right breast: There is no suspicious group of microcalcifications or new suspicious mass. Left breast: There is no suspicious group of microcalcifications or new suspicious mass. Overall Assessment: Negative, BI-RAD 1 Management: Screening Mammogram of both breasts in [address] [facility] will attempt to contact patient to return for supplemental views and ultrasound if indicated. Patient should continue monthly self-breast exams. A clinical breast exam by your physician is recommended on an annual basis. This exam should not preclude additional follow-up of suspicious palpable abnormalities. Note on Ara scores and lifetime risk: 1. A Ara score greater than 3% is considered moderate risk. If this is the case, consider specialist referral to assess eligibility for a risk reducing agent. 2. If overall lifetime risk for the development of breast cancer is 20% or higher, the patient may qualify for future screening with alternating mammogram and breast MRI. [facility], , 03/15/2025 3:15 PM. Electronically signed and approved by: Pavel Mooney DO
== END | disposition home or self-care (01) ==
LOC: RADMAMWWP 14:16
PROVIDERS: ATTEND Internal Medicine
DX: Z12.31 Encounter for screening mammogram for malignant neoplasm of breast (principal); R92.323 Mammographic fibroglandular density, bilateral breasts; Z78.0 Asymptomatic menopausal state; Z80.3 Family history of malignant neoplasm of breast; Z92.0 Personal history of contraception
CPT/HCPCS: 77063; 77067